=== PATIENT | male | born 1965 | race Caucasian/White ===

== ENCOUNTER 2019-06-23 04:28 | Emergency (ER) | payer MEDICARE, MEDICAID ==
--- NOTE | 2019-06-23 04:39 | ED ---
Neck Pain - HPI Summary HPI Summary: The patient is a 54 y/o M arriving by ambulance to [facility] with a chief complaint of right-sided neck pain beginning this morning at 0320. He reports that the pain extends into the posterior neck and upper trapezius. He denies any extremity weakness or paresthesias. Currently, his symptoms are rated 10/10 in severity. The sharp pain is aggravated by movement and alleviated by rest. He states that he felt okay prior to going to sleep last night. No recent falls or accidents. No hx of similar episodes. PMHx: pancreatitis, EtOH abuse, HIV, hepatitis B, hepatitis C. Heavy every day smoker, daily EtOH, cocaine and heroin use. Medications reviewed. Allergies noted. - History of Current Complaint Stated Complaint: NECK PAIN PER EMS Time Seen by Provider: 06/23/19 04:32 Hx Obtained From: Patient Onset/Duration Of Injury/Symptoms: Minutes Mechanism Of Injury: No Known Trauma Timing: Lasting Minutes - since 0320 Onset/Duration: Sudden Onset, Started minutes ago, Still Present Severity Initially: Severe Severity Currently: Severe Pain Intensity: 10 Pain Scale Used: 0-10 Numeric Location: Discrete At: - right side of neck Character: Sharp Aggravating Factors: Movement Alleviating Factors: Other: - rest Associated Signs & Symptoms: Negative: Weakness, Paresthesia - Allergies/Home Medications Allergies/Adverse Reactions: Allergies Allergy/AdvReac Type Severity Reaction Status Date / Time prochlorperazine Allergy Joint Pain Verified 05/23/19 14:47 [From Compazine] PMH/Surg Hx/FS Hx/Imm Hx Endocrine/Hematology History: Denies: Hx Diabetes Cardiovascular History: Denies: Hx Hypertension GI History: Reports: Other GI Disorders - pancreatitis Sensory History: Denies: Hx Legally Blind, Hx Deafness Opthamlomology History: Denies: Hx Legally Blind - Surgical History Surgical History: None Surgery Procedure, Year, and Place: none Infectious Disease History: Yes Infectious Disease History: Reports: Hx Hepatitis - B, C, Hx Human Immunodeficiency Virus (HIV) Denies: Traveled Outside the [place] in Last 30 Days - Family History Known Family History: Positive: Diabetes Negative: Hypertension - Social History Alcohol Use: Daily Alcohol Amount: 1 pint and lots of beers Hx Substance Use: Yes Substance Use Type: Reports: Cocaine, Heroin Hx Tobacco Use: Yes Smoking Status (MU): Heavy Every Day Tobacco Smoker Review of Systems Positive: Other - right-sided neck pain radiating into upper back Negative: Weakness, Paresthesia All Other Systems Reviewed And Are Negative: Yes Physical Exam - Summary Physical Exam Summary: Appearance: Well-appearing, Well-nourished, lying in bed comfortably Skin: Warm, dry, no obvious rash Eyes: sclera anicteric, no conjunctival pallor ENT: mucous membranes moist, pharynx appears normal Neck: Supple, nontender Respiratory: Clear to auscultation, no signs of respiratory distress Cardiovascular: Normal S1, S2. No murmurs. Normal distal pulses in tibial and radial bilaterally. Abdomen: Soft, nontender, normal active bowel sounds present Musculoskeletal: Normal, Strength/ROM Intact, Motor function in all 4 extremities is normal and symmetric. There is no rigidity or tremor noted. Neurological: A&Ox3, awake and alert, mentation is normal, speech is fluent and appropriate, No clonus, No focal motor deficits Psychiatric: affect is normal, does not appear anxious or depressed Triage Information Reviewed: Yes Vital Signs On Initial Exam: Initial Vitals Temp Pulse Resp BP Pulse Ox 98.0 F 74 18 121/81 98 06/23/19 04:33 06/23/19 04:33 06/23/19 04:33 06/23/19 04:33 06/23/19 04:33 Vital Signs Reviewed: Yes Diagnostics - Vital Signs Vital Signs Temp Pulse Resp BP Pulse Ox 06/23/19 04:33 98.0 F 74 18 121/81 98 - Laboratory Result Diagrams: 06/23/19 05:15 06/23/19 05:15 Lab Statement: Any lab studies that have been ordered have been reviewed, and results considered in the medical decision making process. Re-Evaluation - Re-Evaluation First Eval Re-Evaluation Time: 18:15 Comment: We discussed all results and discharge plan. Neck Course/Dx - Course Course Of Treatment: Pt is a 54 y/o M with cc of sharp right-sided neck pain with sudden onset at 0320 this morning without any associated symptoms including weakness or paresthesias. Upon physical exam, the pt does not appear to have any clonus or motor deficits present; there are no hard neurologic findings. Blood work reveals WBCs 1.8 (pt has documented chronic neutropenia), RBC 3.42, Hgb 10.4, Hct 31, RDW 16, plt count 118, MPV 7.2, abs neuts 0.6, abs lymphs 0.7, calcium 8.4, and total protein 6.0. In the ED course, the pt was administered Decadron and Toradol. We discussed all results and plan for discharge with rx for Naproxen. He understands and agrees with this plan. Dx is acute neck pain. - Diagnoses Provider Diagnoses: Acute neck pain Discharge ED - Sign-Out/Discharge Documenting (check all that apply): Patient Departure - Patient will be discharged home. Patient Received Moderate/Deep Sedation with Procedure: No - Discharge Plan Condition: Good Disposition: HOME Prescriptions: Naproxen [Naprosyn 500 mg tab] 500 mg PO BID PRN #20 tablet PRN Reason: Pain - Moderate Patient Education Materials: Acute Neck Pain (ED) Referrals: [facility] [Outside] - 3 Days - Billing Disposition and Condition Condition: GOOD Disposition: Home - Attestation Statements Document Initiated by Scribe: Yes Documenting Scribe: Gwen Soliz Provider For Whom Nabil is Documenting (Include Credential): Dr. Gregory Duque MD Scribe Attestation: Gwen Segura scribed for Dr. Gregory Duque MD on 06/24/19 at 0657. Scribe Documentation Reviewed: Yes Provider Attestation: The documentation as recorded by the Gwen catherine accurately reflects the service I personally performed and the decisions made by me, Dr. Gregory Duque MD Status of Scribe Document: Viewed
[2019-06-23] MEDS ORDERED: Ketorolac INJ* 30 MG/ML 1 ML VIAL IV PUSH ONE (04:46)
[2019-06-23] MEDS ORDERED: Dexamethasone IV* 4 MG/ML 1 ML (4 MG) PO ONE (04:46)
[2019-06-23 05:31] LABS: Hematocrit 31 % (42-52); Hemoglobin 10.4 g/dL (14.0-18.0); Mean Corpuscular HGB Conc 34 g/dL (31-36); Mean Corpuscular Hemoglobin 30 pg (27-31); Mean Corpuscular Volume 90 fL (80-94); Mean Platelet Volume 7.2 fL (7.4-10.4); Platelet Count 118 10^3/uL (150-450); Red Blood Count 3.42 10^6 /uL (4.18-5.48); Red Cell Distribution Width 16 % (10-15); White Blood Count 1.8 10^3/uL (3.5-10.8)
[2019-06-23 05:38] LABS: ABS Eosinophils 0.1 10^3/ul (0-0.6); ABS Lymphocytes 0.7 10^3/ul (1.0-4.8); ABS Monocytes 0.4 10^3/ul (0-0.8); ABS Neutrophils 0.6 10^3/ul (1.5-7.7); Eosinophil % 3.9 %; Lymphocyte % 39.9 %; Nucleated Red Blood Cells % 0.1
[2019-06-23 05:46] LABS: ALT 12 U/L (7-52); AST 20 U/L (13-39); Albumin 3.6 g/dL (3.2-5.2); Albumin/Globulin Ratio 1.5 (1-3); Alkaline Phosphatase 85 U/L (34-104); Anion Gap 6 mmol/L (2-11); BUN/Creatinine Ratio 15.8 (8-20); Blood Urea Nitrogen 15 mg/dL (6-24); C Reactive Protein < 1.00 mg/L (<8.01); CO2 Carbon Dioxide 25 mmol/L (22-32); Calcium 8.4 mg/dL (8.6-10.3); Chloride 106 mmol/L (101-111); EGFR Non-African American 82.6 (>60); Globulin 2.4 g/dL (2-4); Glucose 97 mg/dL (70-100); Potassium 4.2 mmol/L (3.5-5.0); Sodium 137 mmol/L (135-145)
[2019-06-23 06:42] VITALS: BP 114/79
== END 2019-06-23 06:40 | disposition home or self-care (01) ==
LOC: ED 04:28
DX: M54.2 Cervicalgia (principal); B20 Human immunodeficiency virus [HIV] disease; Z88.8 Allergy status to other drugs, medicaments and biological substances; F17.200 Nicotine dependence, unspecified, uncomplicated
CPT/HCPCS: 36415; 80053; 85025; 86140; 96374; 99284; J1100; J1885